=== PATIENT | male | born 1985 | race Caucasian/White ===

== ENCOUNTER 2016-09-20 07:29 | Emergency (ER) | payer OTHER ==
[~2016-09-20] VITALS: Ht 182.9 cm; Wt 70.0 kg
[2016-09-20 07:35] VITALS: BP 147/100; PULSE 89; RESP 17; TEMP 98.2; O2SAT 98
--- NOTE | 2016-09-20 07:48 | PD ---
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 Pt. and his colleagues became concerned and brought him to the emergency department. Pt. had no chest pain, shortness of breath or other symptoms. He reports that from time to time he feels short of breath, but had no difficulty breathing today. He was just doing the EKG as a precaution. He denies any history of hypertension, hyperlipidemia, diabetes, smoking or family history of heart disease. [facility] Past Medical History Medical History: Denies Significant Hx Past Surgical History Surgical History: No Previous Surgery Social History Alcohol Use: Yes (OCC) Tobacco Use: No Substance Use: No Allergies-Medications (Allergen,Severity, Reaction): Coded Allergies: Amoxicillin (Verified Allergy, Unknown, 09/20/16) Reported Meds & Prescriptions Reported Meds & Active Scripts Active No Active Prescriptions or Reported Medications Review of Systems Except as stated in HPI: all other systems reviewed are Neg Physical Exam Narrative GENERAL:Well appearing, no acute distress SKIN: Focused skin assessment warm and dry. HEAD: Atraumatic. Normocephalic. EYES: Pupils equal and round. No injection or drainage. ENT: Moist mucous membranes NECK: Trachea midline. CARDIOVASCULAR: Regular rate and rhythm. No murmur appreciated. RESPIRATORY: Clear to auscultation. Breath sounds equal bilaterally. GASTROINTESTINAL: Abdomen soft, non-tender, nondistended. MUSCULOSKELETAL: No obvious deformities. NEUROLOGICAL: Awake and alert. No obvious cranial nerve deficits. Moving all extremities. PSYCHIATRIC: Appropriate mood and affect; insight and judgment normal. Data Data Last Documented VS Vital Signs Date Time Temp Pulse Resp B/P Pulse Ox O2 Delivery O2 Flow Rate FiO2 09/20/16 07:38 87 17 100 Room Air 09/20/16 07:35 98.2 147/100 [facility] Medical Decision Making Medical Screen Exam Complete: Yes Emergency Medical Condition: Yes Interpretation(s) Afebrile, no tachycardia, hypertensive EKG: Normal sinus rhythm, incomplete right bundle branch block, PAC and PVC present Differential Diagnosis Acute coronary syndrome, arrhythmia, benign early repolarization Narrative Course This is a 31-year-old male who presents to the emergency department having been doing a routine EKG at work when it was noted that his EKG appeared to be a STEMI. I reviewed the EKGs that the patient performed an I don't appreciate significant ST elevation in the inferior segments. Patient is completely asymptomatic and he was just brought in as a precaution. We repeated the EKG in the emergency department and it demonstrates an incomplete right bundle branch block with a PAC and PVC. 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 He has no risk factors for heart disease and no symptoms at this time. Patient will be discharged home. Diagnosis Primary Impression: Incomplete right bundle branch block (RBBB) determined by electrocardiography Referrals: Sami Tran MD Patient Instructions: General Instructions Additional Instructions: If you develop severe chest pain, shortness of breath, sweating, lightheadedness , dizziness or difficulty breathing return to the emergency department immediately. Followup with your primary care physician in 2-3 days if your symptoms are not resolved. Med/Other Pt SpecificInfo: No Change to Meds Scripts No Active Prescriptions or Reported Meds Disposition: 01 DISCHARGE HOME Condition: Stable Raisa Dimas MD September 20, 2016 07:48
--- NOTE | 2016-09-20 15:03 | EKG ---
Date Performed: 09/20/2016 Time Performed: 07:39:48 PTAGE: 31 years EKG: Sinus rhythm WITH OCCASIONAL VENTRICULAR PREMATURE COMPLEXES WITH OCCASIONAL SUPRAVENTRICULAR PREMATURE COMPLEXES POSSIBLE LEFT ATRIAL ENLARGEMENT INCOMPLETE RIGHT BUNDLE BRANCH BLOCK BORDERLINE ECG NO PREVIOUS TRACING DOCTOR: Farooq Calderon Interpretating Date/Time 09/20/2016 15:00:58
== END 2016-09-20 08:06 | disposition home or self-care (01) ==
LOC: NEPC 07:29
DX: I45.10 Unspecified right bundle-branch block (principal)
CPT/HCPCS: 93005; 99282